=== PATIENT | male | born 1985 | race Caucasian/White ===

== ENCOUNTER 2019-05-08 19:20 | Emergency (ER) | payer MEDICAID, OTHER ==
[~2019-05-08] VITALS: Ht 193 cm; Wt 90.7 kg
[2019-05-09] VITALS: BP 120/79
== END 2019-05-09 04:04 | disposition home or self-care (01) ==
LOC: EDBD 19:20 → ER 19:23
DX: S00.83XA Contusion of other part of head, initial encounter (principal); X58.XXXA Exposure to other specified factors, initial encounter; Y93.89 Activity, other specified; Y92.89 Other specified places as the place of occurrence of the external cause; Y99.8 Other external cause status
CPT/HCPCS: 70160; 70486

== ENCOUNTER 2019-09-12 13:19 | Emergency (ER) | payer MEDICAID ==
[~2019-09-12] VITALS: Ht 193 cm; Wt 86.2 kg
[2019-09-12 14:02] LABS: Hematocrit 45.8 % (41.0-53.0); Hemoglobin 15.4 g/dL (13.5-17.5); Mean Corpuscular Hemoglobin 30.7 pg (28.0-32.0); Mean Corpuscular Hgb Conc. 33.6 g/dL (32.0-36.0); Mean Corpuscular Volume 91.4 fL (80.0-100.0); Platelet Count (auto) 147 10^3/uL (140-450); Red Blood Cells 5.01 10^6/uL (4.5-5.90); Red Cell Distribution Width 13.1 % (11.8-14.3); White Blood Cell 21.5 10^3/uL (4.4-10.8)
[2019-09-12 14:03] LABS: Basophils % (manual) 0 (0.0-2.0); Blast Cells 0; Metamyelocytes % 0; Myelocytes % 0; Promyelocytes % 0; Reactive Lymphocytes 0
[2019-09-12 14:15] LABS: Band Neutrophils % (manual) 2; Eosinophils % (manual) 1 (0-7); Lymphocytes % (manual) 10 (10.0-50.0); Monocytes % (manual) 4 (0-12)
[2019-09-12 14:17] LABS: INR 1.09 (0.9-1.15); Partial Thromboplastin Time 30.2 sec (23.64-32.05)
[2019-09-12 14:23] LABS: Anion Gap 4 (5-15); Blood Urea Nitrogen 13 mg/dL (7-18); Calcium 8.9 mg/dL (8.5-10.1); Carbon Dioxide 28 mmol/L (21-32); Chloride 102 mmol/L (98-107); Glucose 172 mg/dL (74-106); Potassium 3.8 mmol/L (3.5-5.1); Sodium 134 mmol/L (136-145)
[2019-09-12 14:25] LABS: Alanine Aminotransferase 34 U/L (16-61); Aspartate Aminotransferase 15 U/L (15-37); BUN/Creatinine Ratio 9.9; GFR African American 80 mL/min; GFR Non-African American 66 mL/min
[2019-09-12 14:29] LABS: Alkaline Phosphatase 90 U/L (45-117); Bilirubin, Total 1.4 mg/dL (0.2-1.0); Total Protein 8.1 g/dL (6.4-8.2)
[2019-09-12 14:51] LABS: Urine Bacteria NONE SEEN /hpf (None Seen); Urine Blood 3+ /uL (Negative); Urine Mucus FEW (None Seen); Urine WBC 833 /hpf (0 - 3)
[2019-09-12 18:00] VITALS: BP 121/83
[2019-09-12] MEDS ORDERED: SODIUM CHLORIDE 0.9% 1,000 ML IV ONE (18:00)
[2019-09-12] MEDS ORDERED: cefTRIAXone 1GM/50ML D5W 50 ML IV ONE (18:00)
== END 2019-09-12 18:46 | disposition home or self-care (01) ==
LOC: ER 13:19
DX: N20.0 Calculus of kidney (principal); N39.0 Urinary tract infection, site not specified; F17.210 Nicotine dependence, cigarettes, uncomplicated
CPT/HCPCS: 36415; 74176; 76870; 80053; 81001; 84484; 85007; 85027; 85610; 85730; 96365

== ENCOUNTER 2022-09-22 13:46 | Emergency (ER) | payer MEDICAID ==
[~2022-09-22] VITALS: Ht 193 cm; Wt 86.0 kg
[2022-09-22 14:18] VITALS: BP 132/80
[2022-09-22] MEDS ORDERED: HYDR-4902 PO (14:45)
[2022-09-22] MEDS ORDERED: IBUP800T26 PO (14:45)
[2022-09-22] MEDS ORDERED: TOBRSUS35 RIGHTEYE (14:45)
== END 2022-09-22 18:14 | disposition home or self-care (01) ==
LOC: ER 13:46
DX: S05.01XA Injury of conjunctiva and corneal abrasion without foreign body, right eye, initial encounter (principal); F17.210 Nicotine dependence, cigarettes, uncomplicated; F12.10 Cannabis abuse, uncomplicated; X58.XXXA Exposure to other specified factors, initial encounter; Y93.89 Activity, other specified; Y92.89 Other specified places as the place of occurrence of the external cause; Y99.8 Other external cause status

== ENCOUNTER 2023-01-06 00:59 | Emergency (ER) | payer MEDICAID ==
[~2023-01-06] VITALS: Ht 193 cm; Wt 88.6 kg
[~2023-01-06 00:59] MED LIST: HYDR-4902 PO; IBUP-1455 PO; TOBRSUS35 RIGHTEYE
[2023-01-06] MEDS ORDERED: IBUPROFEN 800 MG TAB PO ONE (03:00)
[2023-01-06] MEDS ORDERED: IBUP1TAB5 PO (03:01)
[2023-01-06] MEDS ORDERED: CEPH500C PO (03:09)
[2023-01-06] MEDS ORDERED: MUPI2OIN2 EX (03:09)
[2023-01-06] MEDS ORDERED: TETANUS-DIPTH-ACEL PERTUSSIS 0.5ML SYR Tdap IM ONE (03:15)
[2023-01-06 04:27] VITALS: BP 121/72; PULSE 96; RESP 16; TEMP 98.1; O2SAT 97
== END 2023-01-06 07:19 | disposition home or self-care (01) ==
LOC: ER 00:59
DX: S62.306A Unspecified fracture of fifth metacarpal bone, right hand, initial encounter for closed fracture (principal); S63.92XA Sprain of unspecified part of left wrist and hand, initial encounter; S60.552A Superficial foreign body of left hand, initial encounter; F17.210 Nicotine dependence, cigarettes, uncomplicated; F12.10 Cannabis abuse, uncomplicated; W22.8XXA Striking against or struck by other objects, initial encounter; Y93.89 Activity, other specified; Y92.89 Other specified places as the place of occurrence of the external cause; Y99.8 Other external cause status
CPT/HCPCS: 29125; 73130; 90471; 90715